=== PATIENT | female | born 1970 | race American Indian/Alaskan Native ===

== ENCOUNTER → 2017-04-25 | Outpatient (CLI) | payer BC ==
[~2017-04-25] MED LIST: GLUCOPHAGE500 MG/TAB PO; INDOCIN50 MG PO; JANUVIA 100MG100 MG PO; MACROBID 1100 MG/CAP PO; MULTI VITAMINS1 TAB PO; NO HOME MEDICATIONS; NORCO 325 MG-51 TAB PO; NORCO 325 MG-7.1 TAB PO; PRINIVIL20 MG PO; PROAIR HFA0.09 MG/AC IH; VENTOLIN0.09 MG IH
== END ==
LOC: MC.RAD 15:20
DX: Z12.31 Encounter for screening mammogram for malignant neoplasm of breast (principal)

== ENCOUNTER → 2017-05-17 | Outpatient (CLI) | payer BC ==
[2017-05-17 10:18] LABS: BASO # 0.1 (0.0-0.2); BASO % 0.8 % (0.0-2.0); EOS # 0.3 (0.0-0.7); EOS % 1.9 % (0-4.0); GRAN % 76.5 % (42.2-75.2); HEMOGLOBIN 16.7 g/dl (12.5-16.0); LYMPH % 13.6 % (20.0-51.0); MEAN CELL VOLUME 96 fl (80.0-100.0); MEAN CORPUSCULAR HEMOGLOBIN 32 pg (27.0-31.0); MEAN CORPUSCULAR HGB CONC 33 g/dl (33.0-37.0); MEAN PLATELET VOLUME 10.9 fl (7.4-10.4); MONO % 6.7 % (1.7-9.3); PLATELET COUNT 260 K/mm3 (130-400); RED BLOOD COUNT 5.21 M/mm3 (4.10-5.30); WHITE BLOOD COUNT 14.3 K/mm3 (4.8-10.8)
[2017-05-17 10:55] LABS: ADJUSTED CALCIUM 8.8 mg/dL (8.4-10.2); ALBUMIN 4.3 gm/dL (3.5-5.0); BILIRUBIN,TOTAL 0.8 mg/dL (0.0-1.0); CREATININE, serum 0.61 mg/dL (0.52-1.25); POTASSIUM 4.2 mmol/L (3.4-5.0)
[2017-05-17 11:38] LABS: THYROID STIMULATING HORMONE 0.843 uIU/mL (0.465-4.680)
== END ==
LOC: COL.LAB 08:51
PROVIDERS: Internal Medicine
DX: Z00.00 Encounter for general adult medical examination without abnormal findings (principal); E11.9 Type 2 diabetes mellitus without complications

== ENCOUNTER → 2017-07-31 | Outpatient (CLI) | payer BC | LOC: COL.RAD 08:14 | DX: K76.89 Other specified diseases of liver (principal); R74.8 Abnormal levels of other serum enzymes ==

== ENCOUNTER → 2017-08-07 | Outpatient (CLI) | payer BC, OTHER ==
[2017-08-07] VITALS (13 sets, daily range): BP systolic 92–115; BP diastolic 57–77; PULSE 56–76
[~2017-08-07] VITALS: Ht 167.6 cm; Wt 95.8 kg
[~2017-08-07] MED LIST changes: +AMOXICILLIN 8751 TAB PO; +GLUCOPHAGE1000 MG PO; +LIPITOR 10MG10 MG PO
--- NOTE | 2017-08-07 10:09 | NUR ---
pt/inr drawn and sent with lab
[2017-08-07 10:17] LABS: PROTHROMBIN TIME 11.3 SECONDS (9.7-12.8)
--- NOTE | 2017-08-07 12:29 | NUR ---
TED COMPLETED. PT AGREES TO PRAOCEDURE.
--- NOTE | 2017-08-07 12:30 | NUR ---
PT DOING WELL
--- NOTE | 2017-08-07 12:31 | NUR ---
SAMPLE TAKEN. PT ARNOLD STALLINGS
--- NOTE | 2017-08-07 12:31 | NUR ---
PT RESTING WITH EYES CLOSED
--- NOTE | 2017-08-07 12:32 | NUR ---
SITTING UP IN CHAIR WITH WARM BLANKET.
--- NOTE | 2017-08-07 12:41 | NUR ---
PT RESTING WITH DTV ON. FAMILY BROUGHT BACK AND COFFEE OFFERED/GIVEN
--- NOTE | 2017-08-07 12:42 | NUR ---
PT DOING WELL. NO STAINING ON THE DRESSING. NO PAIN
--- NOTE | 2017-08-07 12:53 | NUR ---
WENT OVER DC INSTRUCTIONS WITH PT AND FRIEND. PT WAS GIVEN A COPY OF THE DC INSTRUCTIONS.
--- NOTE | 2017-08-07 13:18 | NUR ---
Int removed from left AC space. Catheter tip intact. 2x2 and coban to site. Pressure applied to site. Pt up to get dressed. Denies pain at this time. Coffee given to pt.
--- NOTE | 2017-08-07 13:56 | NUR ---
pt out to car per wheelchair. Denies pain at this time. Pt into car without assistance.
== END ==
LOC: COL.RAD 09:37
PROVIDERS: Internal Medicine Gastroenterology
DX: R74.8 Abnormal levels of other serum enzymes (principal); Z98.51 Tubal ligation status; Z98.890 Other specified postprocedural states; Z90.721 Acquired absence of ovaries, unilateral
CPT/HCPCS: 25757

== ENCOUNTER → 2018-06-11 | Outpatient (CLI) | payer BC ==
[~2018-06-11] MED LIST changes: -AMOXICILLIN 8751 TAB PO; -GLUCOPHAGE1000 MG PO; -LIPITOR 10MG10 MG PO
== END ==
LOC: MC.RAD 10:58
DX: Z12.31 Encounter for screening mammogram for malignant neoplasm of breast (principal); N63.21 Unspecified lump in the left breast, upper outer quadrant; N63.10 Unspecified lump in the right breast, unspecified quadrant

== ENCOUNTER → 2018-11-20 | Outpatient (CLI) | payer BC | LOC: COL.RAD 10:53 | DX: K76.0 Fatty (change of) liver, not elsewhere classified (principal); S22.32XA Fracture of one rib, left side, initial encounter for closed fracture; R91.8 Other nonspecific abnormal finding of lung field; J98.4 Other disorders of lung | CPT/HCPCS: Q9967 ==

== ENCOUNTER 2019-03-01 08:23 | Emergency (ER) | payer BC ==
[~2019-03-01] VITALS: Ht 167.6 cm; Wt 113.2 kg
[2019-03-01 08:39] LABS: COLLECTION METHOD CLEAN CATCH
[2019-03-01] MEDS ORDERED: LIPITOR20 MG PO (08:43)
[2019-03-01] MEDS ORDERED: GLUCOPHAGE1000 MG PO (08:43)
[2019-03-01 08:45] LABS: PH 7 (5-8); SQUAMOUS EPITHELIAL 0-2 /hpf; URINE APPEARANCE Clear; URINE BACTERIA None Seen /hpf; URINE BILIRUBIN Negative (NEGATIVE); URINE BLOOD 1+ (NEGATIVE); URINE COLOR Yellow; URINE GLUCOSE Negative (NEGATIVE); URINE KETONE Negative (NEGATIVE); URINE LEUKOCYTE ESTERASE Negative (NEGATIVE); URINE NITRATE Negative (NEGATIVE); URINE PROTEIN(semi-quant) Negative (NEGATIVE); URINE UROBILINOGEN >=4.0 mg/dL (NEGATIVE)
[2019-03-01 08:58] LABS: HEMATOCRIT 42.9 % (37.0-47.0); HEMOGLOBIN 14.7 g/dl (12.5-16.0); MEAN CELL VOLUME 93 fl (80.0-100.0); MEAN CORPUSCULAR HEMOGLOBIN 32 pg (27.0-31.0); MEAN CORPUSCULAR HGB CONC 34 g/dl (33.0-37.0); MEAN PLATELET VOLUME 9.7 fl (7.4-10.4); PLATELET COUNT 232 K/mm3 (130-400); RED BLOOD COUNT 4.64 M/mm3 (4.10-5.30); REDCELL DISTRIBUTION WIDTH-CV 12.9 % (11.5-14.5)
[2019-03-01 09:05] LABS: ALBUMIN 4.3 gm/dL (3.5-5.0); BILIRUBIN,TOTAL 1.3 mg/dL (0.0-1.0); CALCIUM 9.1 mg/dL (8.4-10.2); CREATININE, serum 0.67 (0.52-1.25); POTASSIUM 4.3 mmol/L (3.4-5.0); TOTAL PROTEIN 8.3 gm/dL (6.4-8.2)
[2019-03-01 09:16] LABS: BAND 14 % (0-10); NEUTROPHILS 61 % (42.0-75.2); NUCLEATED RED BLOOD CELL 1 (0-6)
[2019-03-01 09:17] LABS: LYMPHOCYTE 13 % (20.0-51.0); PLATELET ESTIMATE NORMAL (NORMAL)
[2019-03-01] MEDS ORDERED: NORCO 325 MG-51 TAB PO (10:11)
[2019-03-01] MEDS ORDERED: AMOXICILLIN 8751 TAB PO (10:11)
[2019-03-01 10:40] VITALS: BP 114/71; PULSE 98; TEMP 99.3
== END 2019-03-01 10:40 | disposition home or self-care (01) ==
LOC: COL.ER 08:23
PROVIDERS: Nurse Practitioner
DX: K57.32 Diverticulitis of large intestine without perforation or abscess without bleeding (principal); E11.9 Type 2 diabetes mellitus without complications; I10 Essential (primary) hypertension; Z88.5 Allergy status to narcotic agent; Z87.891 Personal history of nicotine dependence; Z79.84 Long term (current) use of oral hypoglycemic drugs
CPT/HCPCS: J1885; J7030; Q9967

== ENCOUNTER → 2019-04-10 | Outpatient (CLI) | payer BC ==
[~2019-04-10] MED LIST changes: +AMOXICILLIN 8751 TAB PO; +GLUCOPHAGE1000 MG PO; +LIPITOR20 MG PO
== END ==
LOC: COL.RAD 07:11
DX: N85.00 Endometrial hyperplasia, unspecified (principal); K76.0 Fatty (change of) liver, not elsewhere classified; R59.0 Localized enlarged lymph nodes
CPT/HCPCS: Q9967

== ENCOUNTER → 2019-04-16 | Outpatient (CLI) | payer BC | LOC: COL.LAB 14:02 | DX: Z01.89 Encounter for other specified special examinations (principal) ==

== ENCOUNTER → 2019-04-21 | Outpatient (CLI) | payer BC | LOC: COL.RAD 09:45 | DX: N93.9 Abnormal uterine and vaginal bleeding, unspecified (principal) ==

== ENCOUNTER 2019-05-04 06:59 | Day surgery (SDC) | payer BC ==
[~2019-05-04] VITALS: Ht 167.6 cm; Wt 110.0 kg
[~2019-05-04 06:59] MED LIST changes: +LIPITOR 10MG10 MG PO; -LIPITOR20 MG PO
[2019-05-04 07:47] VITALS: BP 119/68; PULSE 90; TEMP 97
[2019-05-04 09:10] VITALS: BP 108/79; PULSE 74; TEMP 97
--- NOTE | 2019-05-04 09:10 | NUR ---
Patient arrives back to [facility] [place], [place] drowsy. Ambulates from cart to chair with stand by assist x2. Patient monitor applied, vitals stable. Patient friend at chair side.
--- NOTE | 2019-05-04 09:15 | NUR ---
Patient restring comfortably in chair. Patient given coffee and muffin.
--- NOTE | 2019-05-04 09:17 | NUR ---
Dr Pacheco into see patient at this time.
[2019-05-04 09:25] VITALS: BP 92/76; PULSE 76
[2019-05-04 09:40] VITALS: BP 105/69; PULSE 83
--- NOTE | 2019-05-04 09:40 | NUR ---
Patient tolerates muffin and coffee without any nausea. Patient denies pain, reports she is ready to go home.
--- NOTE | 2019-05-04 09:50 | NUR ---
Dismissal instructions gone over with patient and patient's friend. Both verbalize understanding and all questions answered.
--- NOTE | 2019-05-04 10:05 | NUR ---
Patient discharged to private vehicle at patient enterance via wheel chair. Patient and friend leave thanking staff for services.
== END 2019-05-04 10:05 | disposition home or self-care (01) ==
LOC: SDCO 06:59
DX: D12.4 Benign neoplasm of descending colon (principal); K57.32 Diverticulitis of large intestine without perforation or abscess without bleeding; K63.5 Polyp of colon; E11.9 Type 2 diabetes mellitus without complications; Z79.84 Long term (current) use of oral hypoglycemic drugs; M10.9 Gout, unspecified; K76.0 Fatty (change of) liver, not elsewhere classified; F41.9 Anxiety disorder, unspecified; F32.9 Major depressive disorder, single episode, unspecified; J45.909 Unspecified asthma, uncomplicated; E78.00 Pure hypercholesterolemia, unspecified; Z80.1 Family history of malignant neoplasm of trachea, bronchus and lung; Z83.79 Family history of other diseases of the digestive system; Z82.5 Family history of asthma and other chronic lower respiratory diseases; Z87.891 Personal history of nicotine dependence; Z83.3 Family history of diabetes mellitus; Z82.49 Family history of ischemic heart disease and other diseases of the circulatory system; Z98.51 Tubal ligation status; I10 Essential (primary) hypertension; Z90.721 Acquired absence of ovaries, unilateral; Z88.5 Allergy status to narcotic agent
CPT/HCPCS: J7030

== ENCOUNTER → 2019-07-15 | Outpatient (CLI) | payer BC | LOC: MC.RAD 13:45 | DX: Z12.31 Encounter for screening mammogram for malignant neoplasm of breast (principal) ==

== ENCOUNTER → 2021-03-10 | Outpatient (CLI) | payer BC | LOC: MC.RAD 13:45 | DX: Z12.31 Encounter for screening mammogram for malignant neoplasm of breast (principal) ==